=== PATIENT | male | born 1980 | race African-American/Black ===

== ENCOUNTER 2019-07-12 07:06 | Day surgery (SDC) | payer BC ==
[2019-07-11 16:23] VITALS: BP 154/94
[2019-07-11 16:26] LABS: BASOPHILS % (AUTO) 1.5 % (0.0-5.0); EOSINOPHILS % (AUTO) 2.6 % (0.0-8.0); HEMATOCRIT 44.4 % (42-54); LYMPHOCYTES % (AUTO) 29.5 % (21.0-51.0); MEAN CORPUSCULAR HEMOGLOBIN 32.8 pg (27.0-33.0); MEAN CORPUSCULAR HGB CONC 34.3 g/dL (32.0-36.0); MEAN CORPUSCULAR VOLUME 95.5 fL (79-99); MONOCYTES % (AUTO) 7.1 % (3.0-13.0); NEUTROPHILS % (AUTO) 59.3 % (40.0-77.0); NUCLEATED RED BLOOD CELLS 0.1 % (0.0-0.19); PLATELET COUNT (AUTO) 261 K/uL (130-400); RED BLOOD CELL COUNT(AUTO) 4.65 MIL/uL (4.50-6.20); RED CELL DISTRIBUTION WIDTH 12.9 % (11.0-15.5); WHITE BLOOD COUNT (AUTO) 8.7 K/uL (4.8-10.8)
[2019-07-12] VITALS (18 sets, daily range): BP systolic 101–136; BP diastolic 40–98
[~2019-07-12] VITALS: Ht 177.8 cm; Wt 100.9 kg
[2019-07-12] MEDS: LACTATED RINGERS 1000ML 1,000 ML IV SCH ×2 (07:54→08:59)
--- NOTE | 2019-07-12 08:00 | NUR ---
POTENTIAL FOR INFECTION: SHAVED ENTIRE ABDOMEN PER [facility]
[2019-07-12] MEDS ORDERED: ONDANSETRON HCL 4 MG/2 ML VIAL ONE (08:19)
[2019-07-12] MEDS ORDERED: SUCCINYLCHOLINE 200MG/10ML SYR ONE (08:19)
[2019-07-12] MEDS ORDERED: GLYCOPYRROLATE 1 MG/5 ML SYRINGE ONE (08:19)
[2019-07-12] MEDS ORDERED: MIDAZOLAM HCL 1 MG/ML 2ML VIAL ONE (08:19)
[2019-07-12] MEDS ORDERED: PROPOFOL 10 MG/ML 20ML VIAL IV ONE (08:19)
[2019-07-12] MEDS ORDERED: FENTANYL CITRATE PF 50 MCG/1 ML 2ML VIAL ONE ×2 (08:19→09:22)
[2019-07-12] MEDS ORDERED: LIDOCAINE PF 2% 5ML ABBOJECT ONE ×2 (08:19→08:20)
[2019-07-12] MEDS ORDERED: NEOSTIGMINE 5MG/5ML SYR IV ONE (08:19)
[2019-07-12] MEDS ORDERED: DEXAMETHASONE SOD PHOSPHATE 10MG/ML 1ML VIAL ONE (08:19)
[2019-07-12] MEDS ORDERED: ROCURONIUM 10MG/1ML SYR 10 MG/ML ML ONE (08:20)
[2019-07-12] MEDS ORDERED: MEPERIDINE-PF 25 MG/ML SYG ONE (09:28)
[2019-07-12] MEDS ORDERED: BUPIVACAINE/PF 0.25% 30ML VIAL IJ ONE (09:32)
--- NOTE | 2019-07-12 10:53 | NUR ---
PATIENT ARRIVED PATIENT BROUGHT TO DAY PATIENT VIA BED BY TIMO CAICEDO FROM PACU. PATIENT [id number], RESPIRATIONS UNLABORED. PATIENT C/O PAIN TO ABDOMEN, RATES PAIN AT AN 11 ON A SCALE OF 0-10. DRESSING TO ABDOMEN IS DRY AND INTACT, NO DRAINAGE NOTED. WILL CONTINUE TO MONITOR PAIN AND GET ORDERS TO ADMINISTER PAIN MEDICATION.
[2019-07-12] MEDS ORDERED: KETOROLAC TROMETHAMINE 30MG/ML ONE (11:17)
--- NOTE | 2019-07-12 11:30 | NUR ---
PAIN MEDICATION PATIENT C/O PAIN TO ABDOMEN, RATES PAIN AT 10 ON SCALE OF 0-10. THROBBING PAIN IN ABDOMEN DUE TO PATIENT COUGHING AT TIMES. ADMINISTERED TORADOL IV PUSH. WILL CONTINUE TO MONITOR FOR PAIN AND RELIEF FROM MEDICATION ADMINISTRATION. PATIENT'S SPOUSE AT BEDSIDE. PATIENT LAYING QUIETLY, RESPIRATIONS UNLABORED, VITAL SIGNS STABLE.
--- NOTE | 2019-07-12 11:55 | NUR ---
DISCHARGED DISCHARGE INSTRUCTIONS PROVIDED TO PATIENT AND PATIENT'S SPOUSE. FOLLOW UP APPOINTMENTS PROVIDED AND PRESCRIPTIONS WELL. EXPLAINED S/S TO MONITOR FOR AND REPORT. BOTH VERBALIZED UNDERSTANDING. ALL QUESTIONS/CONCERNS ANSWERED. PATIENT VERBALIZES RELIEF OF PAIN. DRESSING TO ABDOMEN IS DRY AND INTACT. RATES PAIN AT A 6 OUT OF 10. RESPIRATIONS UNLABORED AND VITAL SIGNS STABLE. PATIENT TAKEN TO PRIVATE VEHICLE VIA WHEELCHAIR.
== END 2019-07-12 11:55 | disposition home or self-care (01) ==
LOC: DAH 07:06
PROVIDERS: ATTEND Surgery
DX: K42.9 Umbilical hernia without obstruction or gangrene (principal); E66.3 Overweight; Z68.31 Body mass index [BMI] 31.0-31.9, adult; F17.210 Nicotine dependence, cigarettes, uncomplicated; Z72.89 Other problems related to lifestyle
CPT/HCPCS: 36415; 49585; 85025; A4450; A4452; A4606; A4930 ×2; J0330; J1100; J1885; J2001 ×2; J2175; J2250; J2405; J2704; J2710; J3010 ×2; J3490 ×2; J7120 ×2